=== PATIENT | male | born 1955 | race Hispanic/Latino ===

== ENCOUNTER → 2019-08-07 | Outpatient (CLI) | payer MEDICARE ==
[~2019-08-07] VITALS: Ht 180.3 cm; Wt 125.2 kg
[~2019-08-07] MED LIST: ALLO100T PO; ASPI-1012 PO; CARV25TA PO; CLOP75TA32 PO; DIGO125T87 PO; DILT120C47 PO; FURO40TA5 PO; GLIM2TAB3 PO; RANO500T2 PO; REGADENOSON 0.4 MG/5 ML PF SYG IVP SCH; SIMV40TA59 PO; VALS320T16 PO
== END | disposition home or self-care (01) ==
LOC: SHCH 09:19
PROVIDERS: ATTEND Internal Medicine Cardiovascular Disease
DX: R94.39 Abnormal result of other cardiovascular function study (principal); I25.709 Atherosclerosis of coronary artery bypass graft(s), unspecified, with unspecified angina pectoris
CPT/HCPCS: 78452; 93017; 96374; A9500 ×2; J2785

== ENCOUNTER 2019-08-15 09:58 | Observation (INO) | payer MEDICARE ==
[2019-08-13 09:14] LABS: BASOPHILS % (AUTO) 0.8 % (0.0-5.0); HEMATOCRIT 36.6 % (42-54); LYMPHOCYTES % (AUTO) 13.2 % (21.0-51.0); MEAN CORPUSCULAR HEMOGLOBIN 31.1 pg (27.0-33.0); MEAN CORPUSCULAR HGB CONC 33.6 g/dL (32.0-36.0); MEAN CORPUSCULAR VOLUME 92.5 fL (79-99); MONOCYTES % (AUTO) 9.2 % (3.0-13.0); NEUTROPHILS % (AUTO) 72.8 % (40.0-77.0); PLATELET COUNT (AUTO) 254 K/uL (130-400); RED BLOOD CELL COUNT(AUTO) 3.96 MIL/uL (4.50-6.20); RED CELL DISTRIBUTION WIDTH 13.8 % (11.0-15.5); WHITE BLOOD COUNT (AUTO) 7.1 K/uL (4.8-10.8)
[2019-08-13 09:15] VITALS: BP 126/58
[2019-08-13 09:16] LABS: APPEARANCE,URINE Clear (CLEAR); BILIRUBIN,URINE Negative (NEGATIVE); COLOR,URINE Yellow (YELLOW); GLUCOSE, URINE (UA) Negative (NEGATIVE); KETONES,URINE Negative (NEGATIVE); LEUKOCYTE ESTERASE ,URINE Negative (NEGATIVE); NITRATE,URINE Negative (NEGATIVE); OCCULT BLOOD,URINE Negative (NEGATIVE); PH,URINE 5.5 (5.0-8.0); PROTEIN,URINE Negative (NEGATIVE); UROBILINOGEN,URINE 0.2 mg/dL (0.2-1.0)
[2019-08-13 09:22] LABS: POTASSIUM 3.6 mmol/L (3.5-5.1)
[2019-08-13 09:27] LABS: INR 1.01 (0.85-1.15); PARTIAL THROMBOPLASTIN TIME 27.6 SEC (26.3-35.5); PROTHROMBIN TIME 10.6 SEC (9.6-11.6)
[2019-08-14] MEDS: SODIUM CHLORIDE 0.9% 500ML 500 ML IV SCH (05:00)
--- NOTE | 2019-08-14 10:58 | NUR ---
XRAY ABNORMAL CHEST XRAY REPORTED TO SATINDER CASH, NO FURTHER ORDERS GIVEN
[~2019-08-15] VITALS: Ht 179.1 cm; Wt 122.9 kg
[2019-08-15] VITALS (14 sets, daily range): BP systolic 159–217; BP diastolic 69–117
[2019-08-15] MEDS: SODIUM CHLORIDE 0.9% 500ML 500 ML IV SCH (05:00)
[~2019-08-15 09:58] MED LIST changes: -ALLO100T PO; +APIX5TAB PO; -ASPI-1012 PO; +CYAN500T63 PO; -GLIM2TAB3 PO; +INSU100V12 SQ; +ISOS30TA6 PO; +LOSA100T58 PO; +NITR0.4T50 SL; -RANO500T2 PO; -REGADENOSON 0.4 MG/5 ML PF SYG IVP SCH; +SIMV40TA5 PO; -SIMV40TA59 PO; -VALS320T16 PO
[2019-08-15] MEDS ORDERED: AMOX-429 PO (10:59)
--- NOTE | 2019-08-15 11:44 | NUR ---
PT ON ANTIBIOTICS FOR UPPER RESPIRATORY INFECTION, REPORTED TO ANABELL CASH PT ASYMPTOMATIC, NO NEW ORDERS.
[2019-08-15] MEDS ORDERED: SODIUM CHLORIDE 0.9% 1000ML 1,000 ML IV ONE (11:47)
[2019-08-15] MEDS ORDERED: IOHEXOL 350 MG/ML 100ML INFUS..BTL IV ONE ×3 (14:15→15:03)
[2019-08-15] MEDS ORDERED: LIDOCAINE HCL 1% 20 ML VIAL ONE (14:15)
[2019-08-15] MEDS ORDERED: IOHEXOL-350 50ML VIAL IV ONE (14:15)
[2019-08-15] MEDS ORDERED: HEPARIN SODIUM 1000UNIT/ML 10ML VIAL ONE (14:15)
[2019-08-15] MEDS ORDERED: NITROGLYCERIN 50 MG/D5% WATER 1 BOT ONE (14:50)
[2019-08-15] MEDS ORDERED: LABETALOL 20 MG/4 ML DISP.SYRIN IV ONE ×2 (14:50→16:22)
[2019-08-15] MEDS ORDERED: HYDRALAZINE HCL 20 MG/ML VIAL ONE (15:07)
[2019-08-15] MEDS ORDERED: MORPHINE SULFATE 4 MG/1ML SYG ONE (15:20)
[2019-08-15] MEDS ORDERED: ENALAPRILAT DIHYDRATE 1.25 MG/ML 2ML VIAL IVP ONE (15:22)
[2019-08-15] MEDS ORDERED: FUROSEMIDE 10 MG/ML 2ML VIAL ONE (15:29)
[2019-08-15] MEDS ORDERED: GLUCAGON 1MG KIT 1 MG ML IM PRN (16:00)
[2019-08-15] MEDS ORDERED: DEXTROSE 50%-WATER 50 ML DISP.SYRIN IV PRN (16:00)
[2019-08-15] MEDS ORDERED: ACETAMINOPHEN-CODEINE 300/30MG TAB PO PRN ×2 (16:00)
[2019-08-15] MEDS: INSULIN HUMULIN R 100 UNIT/ML 3ML SQ SCH ×2 (16:30→21:00)
[2019-08-15] MEDS ORDERED: HYDRALAZINE HCL 25 MG TABLET PO SCH (17:43)
[2019-08-15] MEDS ORDERED: DILTIAZEM HCL 180 MG CAP.SR.24H PO SCH (17:45)
[2019-08-15] MEDS: LABETALOL 20 MG/4 ML DISP.SYRIN IV PRN ×2 (17:49→23:20)
[2019-08-15] MEDS ORDERED: HYDROXYZINE HCL 25 MG TABLET PO SCH (19:00)
[2019-08-15] MEDS ORDERED: CLONIDINE HCL 0.2 MG TABLET PO SCH (19:15)
[2019-08-15] MEDS: MORPHINE SULFATE 4 MG/1ML SYG IV PRN (19:22)
[2019-08-15] MEDS: HYDRALAZINE HCL 20 MG/ML VIAL IV PRN (19:22)
--- NOTE | 2019-08-15 20:17 | NUR ---
ADVISED PT OF TRANSFER TO ROOM 220 AND DAUGHTER, NO CONCERNS VOICED. GAVE REPORT TO DEL HATFIELD RN , NO CONCERNS VOICED.
--- NOTE | 2019-08-15 20:27 | NUR ---
ADVISED DEL HATFIELD RN ABOUT PENDING MEDICATIONS.
--- NOTE | 2019-08-15 21:10 | NUR ---
PATIENT ARRIVED ON UNIT R GROIN SOFT, NO HEMATOMA. BILATERAL PEDAL PULSES INTACT W/ DOPPLER. NO CHEST PAIN, NO SOB. NO PAIN. SBP IN 190S. RECOVERY NURSE DID NOT ADMINISTER CLONIDINE OR LABETALOL DUE AT 1900. BROUGHT MEDICATIONS TO NURSE AT 2200.
--- NOTE | 2019-08-15 23:15 | NUR ---
PATIENT AMBULATED R GROIN REMAINS SOFT. NO BLEEDING, NO HEMATOMA. PEDAL PULSES INTACT WITH DOPPLER. ONCE SITTING PATIENT GIVEN CLONIDINE AND LABETALOL. SBP DOWN TO 150S AFTER 20 MIN.
[2019-08-16 03:26] VITALS: BP 132/59
[2019-08-16 03:53] LABS: BASOPHILS % (AUTO) 0.6 % (0.0-5.0); EOSINOPHILS % (AUTO) 1.1 % (0.0-8.0); HEMATOCRIT 34.8 % (42-54); LYMPHOCYTES % (AUTO) 9.3 % (21.0-51.0); MEAN CORPUSCULAR HEMOGLOBIN 31.2 pg (27.0-33.0); MEAN CORPUSCULAR HGB CONC 34.2 g/dL (32.0-36.0); MEAN CORPUSCULAR VOLUME 91.4 fL (79-99); MONOCYTES % (AUTO) 7.9 % (3.0-13.0); NEUTROPHILS % (AUTO) 81.1 % (40.0-77.0); PLATELET COUNT (AUTO) 258 K/uL (130-400); RED CELL DISTRIBUTION WIDTH 13.7 % (11.0-15.5); WHITE BLOOD COUNT (AUTO) 8.5 K/uL (4.8-10.8)
[2019-08-16 04:06] LABS: ALBUMIN 2.8 g/dL (3.5-5.0); BILIRUBIN,TOTAL 0.5 mg/dL (0.2-1.0); MAGNESIUM 1.4 mg/dL (1.80-2.40); POTASSIUM 3.6 mmol/L (3.5-5.1)
[2019-08-16] MEDS: SODIUM CHLORIDE 0.9% 500ML 500 ML IV SCH (05:00)
[2019-08-16] MEDS ORDERED: POTASSIUM CHLORIDE 20MEQ/100ML 100 ML IV PRN (05:30)
[2019-08-16] MEDS ORDERED: POTASSIUM CHLORIDE 10% ELIXIR 20 MEQ/15 ML UDCUP PO PRN (05:30)
[2019-08-16] MEDS ORDERED: MAGNESIUM 2GM PREMIX 50ML 50 ML IV PRN (05:30)
[2019-08-16] MEDS ORDERED: POTASSIUM CHLORIDE 20 MEQ ERTAB PO PRN (05:30)
[2019-08-16] MEDS ORDERED: LIDOCAINE HCL-MPF 1% 2ML VIAL IV PRN (05:30)
[2019-08-16] MEDS: INSULIN HUMULIN R 100 UNIT/ML 3ML SQ SCH ×2 (06:27→11:30)
[2019-08-16] MEDS: HYDRALAZINE HCL 20 MG/ML VIAL IV PRN (07:06)
[2019-08-16] MEDS: MORPHINE SULFATE 4 MG/1ML SYG IV PRN (07:06)
[2019-08-16] MEDS ORDERED: NITROGLYCERIN 0.4 MG SL TAB SL PRN (07:15)
[2019-08-16 07:51] VITALS: BP 145/78
--- NOTE | 2019-08-16 08:00 | NUR ---
ASSESSMENT PT IS AAOX4 DENIES CP DENIES SOB DENIES NV NO COMPLAINTS RESTING IN BED. RIGHT GROIN IS CLEAN DRY AND INTACT DRESSING IN PLACE. CALL LIGHT WITHIN REACH.
[2019-08-16] MEDS ORDERED: DIGOXIN 125 MCG TABLET PO SCH (09:00)
[2019-08-16] MEDS ORDERED: DILTIAZEM HCL 120 MG CAP.SR.24H PO SCH (09:00)
[2019-08-16] MEDS ORDERED: CLOPIDOGREL BISULFATE 75 MG TAB PO SCH (09:00)
[2019-08-16] MEDS ORDERED: CARVEDILOL 25 MG TABLET PO SCH (09:00)
[2019-08-16] MEDS ORDERED: FUROSEMIDE 40 MG TABLET PO SCH (09:00)
[2019-08-16] MEDS ORDERED: SIMVASTATIN 20 MG TABLET PO SCH (09:00)
[2019-08-16] MEDS ORDERED: LOSARTAN 100 MG TABLET PO SCH (09:00)
[2019-08-16] MEDS ORDERED: ISOSORBIDE MONO 30MG TAB SR PO SCH (09:00)
[2019-08-16] MEDS ORDERED: AMLODIPINE BESYLATE 2.5 MG TAB PO SCH (09:00)
--- NOTE | 2019-08-16 10:00 | NUR ---
MD ROUNDS DR COOLEY AND DR WU ROUNDED, SAW PATIENT, ORDERS RECEIVED FOR DC HOME.
[2019-08-16 11:44] VITALS: BP 118/50
--- NOTE | 2019-08-16 12:20 | NUR ---
DISCHARGE PATIENT VERBALIZES DC INSTRUCTION UNDERSTANDING, AGREES TO TAKE MEDICATIONS ORDERED AGREES TO FOLLOW UP WITH DR WU ORDERED. ALL QUESTIONS ANSWERED, PIV REMOVED CATH TIP INTACT, TELE PACK REMOVED. ALL BELONGINGS TAKEN WITH PATIENT, DOWN TO VEHICLE AMBULATING ACCOMPANIED BY NURSE AIDE.
[2019-08-16] MEDS ORDERED: HYDRALAZINE HCL 10 MG TABLET PO SCH (14:00)
[2019-08-16] MEDS ORDERED: CYANOCOBALAMIN (VITAMIN B-12) 1,000 MCG TABLET PO SCH (21:00)
[2019-08-16] MEDS ORDERED: INSULIN GLARGINE 100 UNITS/ML 10 ML VIAL SQ SCH (21:00)
== END 2019-08-16 12:36 | disposition home or self-care (01) ==
LOC: DAH 09:58 → 2DH 09:59 → DAH 09:59 → INTOOBSV 09:59
PROVIDERS: ADMIT Family Medicine; ATTEND Family Medicine
DX: I25.119 Atherosclerotic heart disease of native coronary artery with unspecified angina pectoris (principal); I11.0 Hypertensive heart disease with heart failure; I50.42 Chronic combined systolic (congestive) and diastolic (congestive) heart failure; E11.22 Type 2 diabetes mellitus with diabetic chronic kidney disease; I25.5 Ischemic cardiomyopathy; I48.0 Paroxysmal atrial fibrillation; E78.00 Pure hypercholesterolemia, unspecified; E66.01 Morbid (severe) obesity due to excess calories; Z86.73 Personal history of transient ischemic attack (TIA), and cerebral infarction without residual deficits; Z95.1 Presence of aortocoronary bypass graft; Z95.810 Presence of automatic (implantable) cardiac defibrillator; Z80.7 Family history of other malignant neoplasms of lymphoid, hematopoietic and related tissues; Z82.3 Family history of stroke; Z82.49 Family history of ischemic heart disease and other diseases of the circulatory system; Z83.3 Family history of diabetes mellitus; Z90.49 Acquired absence of other specified parts of digestive tract; Z79.899 Other long term (current) drug therapy
CPT/HCPCS: 36415 ×2; 71045; 80048; 80053; 81003; 82948 ×5; 83735; 85025 ×2; 85610; 85730; 93005; 93459; 96365; 96366; 96372; 96375; 96376; A4215; A4216; A4221; A4222; A4223 ×3; A4606; C1769; C1894; G0378 ×14; J0360 ×2; J1644 ×2; J1815; J1940; J2270 ×2; J3475; J3490 ×2; J7030; J7040; Q9965 ×2; Q9967 ×3

== ENCOUNTER → 2021-07-03 | Outpatient (CLI) | payer OTHER ==
[~2021-07-03] MED LIST changes: -CYAN500T63 PO; +CYAN500T9 PO; +DIGO125T71 PO; -DIGO125T87 PO; -DILT120C47 PO; +IOHEXOL 350 MG/ML 100ML INFUS..BTL IV ONE; +IOHEXOL-350 75 ML VIAL IV ONE; -ISOS30TA6 PO; +ISOS30TA92 PO; +SIMV-46 PO; -SIMV40TA5 PO
== END | disposition home or self-care (01) ==
LOC: RAH 09:57
PROVIDERS: ATTEND Internal Medicine Cardiovascular Disease
DX: I70.0 Atherosclerosis of aorta (principal); I65.23 Occlusion and stenosis of bilateral carotid arteries
CPT/HCPCS: 75635; Q9967 ×2

== ENCOUNTER → 2022-10-14 | Outpatient (CLI) | payer OTHER ==
[~2022-10-14] MED LIST changes: -IOHEXOL 350 MG/ML 100ML INFUS..BTL IV ONE; -IOHEXOL-350 75 ML VIAL IV ONE
== END | disposition home or self-care (01) ==
LOC: SHCH 14:10
PROVIDERS: ATTEND Internal Medicine Cardiovascular Disease
DX: I65.23 Occlusion and stenosis of bilateral carotid arteries (principal); I07.1 Rheumatic tricuspid insufficiency; I25.5 Ischemic cardiomyopathy
CPT/HCPCS: 93306; 93880

== ENCOUNTER → 2023-02-24 | Outpatient (CLI) | payer OTHER | END | disposition home or self-care (01) | LOC: LAB 14:04 | PROVIDERS: ATTEND Physician Assistant | DX: I25.10 Atherosclerotic heart disease of native coronary artery without angina pectoris (principal) | CPT/HCPCS: 36415; 80162 ==

== ENCOUNTER → 2023-04-07 | Outpatient (CLI) | payer OTHER ==
[~2023-04-07] MED LIST changes: +ALLO100T PO; +ASPI-1026 PO; +CYAN250014 PO; +DIGO0.12 PO; +DILT120C47 PO; +GLIM2TAB30 PO; -LOSA100T58 PO; +LOSA100T59 PO; +MELA3CAP PO; +RANO10003 PO; +RIVA20TA PO; +VALS320T16 PO
== END | disposition home or self-care (01) ==
LOC: SHCH 13:04
PROVIDERS: ATTEND Internal Medicine Cardiovascular Disease
DX: I87.2 Venous insufficiency (chronic) (peripheral) (principal)
CPT/HCPCS: 93970

== ENCOUNTER → 2023-07-07 | Outpatient (CLI) | payer OTHER ==
[2023-07-07 11:58] LABS: BASOPHILS # (AUTO) 0.05 K/uL (0.00-0.20); BASOPHILS % (AUTO) 0.8 % (0.0-5.0); EOSINOPHILS # (AUTO) 0.15 K/uL (0.00-0.70); EOSINOPHILS % (AUTO) 2.4 % (0.0-8.0); HEMATOCRIT 44.1 % (42-54); IMMATURE GRANULOCYTE ABSOLUTE 0.03 K/uL (0-1); LYMPHOCYTES # (AUTO) 1.1 K/uL (1.0-4.8); LYMPHOCYTES % (AUTO) 18.1 % (21.0-51.0); MEAN CORPUSCULAR HEMOGLOBIN 31.5 pg (27.0-33.0); MEAN CORPUSCULAR HGB CONC 32.4 g/dL (32.0-36.0); MEAN CORPUSCULAR VOLUME 97.1 fL (79-99); MONOCYTES # (AUTO) 0.7 K/uL (0.1-1.0); MONOCYTES % (AUTO) 11.4 % (3.0-13.0); NEUTROPHILS # (AUTO) 4.2 K/uL (1.8-7.7); NEUTROPHILS % (AUTO) 66.8 % (40.0-77.0); PLATELET COUNT (AUTO) 211 K/uL (130-400); RED BLOOD CELL COUNT(AUTO) 4.54 MIL/uL (4.50-6.20); RED CELL DISTRIBUTION WIDTH 13.2 % (11.0-15.5); WHITE BLOOD COUNT (AUTO) 6.3 K/uL (4.8-10.8)
[2023-07-07 12:05] LABS: INR 0.94 (0.85-1.15)
[2023-07-07 12:07] LABS: PARTIAL THROMBOPLASTIN TIME 32.5 SEC (26.3-35.5)
[2023-07-07 12:09] LABS: POTASSIUM 3.8 mmol/L (3.5-5.1)
== END | disposition home or self-care (01) ==
LOC: LAB 10:58
PROVIDERS: ATTEND Internal Medicine Cardiovascular Disease
DX: I87.2 Venous insufficiency (chronic) (peripheral) (principal); I10 Essential (primary) hypertension; I87.1 Compression of vein; I73.9 Peripheral vascular disease, unspecified; R06.02 Shortness of breath; M79.89 Other specified soft tissue disorders; I25.810 Atherosclerosis of coronary artery bypass graft(s) without angina pectoris; Z95.1 Presence of aortocoronary bypass graft; Z79.02 Long term (current) use of antithrombotics/antiplatelets; Z79.899 Other long term (current) drug therapy
CPT/HCPCS: 36415; 80048; 85025; 85610; 85730

== ENCOUNTER → 2023-08-02 | Outpatient (CLI) | payer OTHER | END | disposition home or self-care (01) | LOC: SHCH 10:33 | PROVIDERS: ATTEND Internal Medicine Cardiovascular Disease | DX: I70.293 Other atherosclerosis of native arteries of extremities, bilateral legs (principal) | CPT/HCPCS: 93925 ==

== ENCOUNTER → 2023-08-11 | Outpatient (CLI) | payer OTHER ==
[2023-08-11 16:26] LABS: BASOPHILS # (AUTO) 0.04 K/uL (0.00-0.20); BASOPHILS % (AUTO) 0.6 % (0.0-5.0); EOSINOPHILS # (AUTO) 0.15 K/uL (0.00-0.70); EOSINOPHILS % (AUTO) 2.3 % (0.0-8.0); HEMATOCRIT 43.9 % (42-54); IMMATURE GRANULOCYTE ABSOLUTE 0.01 K/uL (0-1); LYMPHOCYTES # (AUTO) 1.1 K/uL (1.0-4.8); LYMPHOCYTES % (AUTO) 16.4 % (21.0-51.0); MEAN CORPUSCULAR HEMOGLOBIN 31.7 pg (27.0-33.0); MEAN CORPUSCULAR HGB CONC 31.9 g/dL (32.0-36.0); MEAN CORPUSCULAR VOLUME 99.3 fL (79-99); MONOCYTES # (AUTO) 0.7 K/uL (0.1-1.0); MONOCYTES % (AUTO) 11.1 % (3.0-13.0); NEUTROPHILS # (AUTO) 4.5 K/uL (1.8-7.7); NEUTROPHILS % (AUTO) 69.4 % (40.0-77.0); PLATELET COUNT (AUTO) 226 K/uL (130-400); RED BLOOD CELL COUNT(AUTO) 4.42 MIL/uL (4.50-6.20); RED CELL DISTRIBUTION WIDTH 13.3 % (11.0-15.5); WHITE BLOOD COUNT (AUTO) 6.5 K/uL (4.8-10.8)
[2023-08-11 16:28] LABS: CREATININE 1.1 mg/dL (0.5-1.5); POTASSIUM 4.4 mmol/L (3.5-5.1)
[2023-08-11 16:34] LABS: INR 0.95 (0.85-1.15); PROTHROMBIN TIME 11.1 SEC (9.6-11.6)
[2023-08-11 16:35] LABS: PARTIAL THROMBOPLASTIN TIME 32.9 SEC (26.3-35.5)
== END | disposition home or self-care (01) ==
LOC: LAB 13:56
PROVIDERS: ATTEND Internal Medicine Cardiovascular Disease
DX: I11.0 Hypertensive heart disease with heart failure (principal); I50.20 Unspecified systolic (congestive) heart failure; M79.605 Pain in left leg; I73.9 Peripheral vascular disease, unspecified; I48.0 Paroxysmal atrial fibrillation; G25.81 Restless legs syndrome; Z95.1 Presence of aortocoronary bypass graft; I25.10 Atherosclerotic heart disease of native coronary artery without angina pectoris; E78.5 Hyperlipidemia, unspecified; E11.51 Type 2 diabetes mellitus with diabetic peripheral angiopathy without gangrene; Z79.899 Other long term (current) drug therapy; Z79.01 Long term (current) use of anticoagulants; Z79.84 Long term (current) use of oral hypoglycemic drugs
CPT/HCPCS: 36415; 80048; 85025; 85610; 85730

== ENCOUNTER 2023-12-20 11:47 | Observation (INO) | payer OTHER ==
[~2023-12-20] VITALS: Ht 175.3 cm; Wt 122.5 kg
[2023-12-20 12:36] LABS: BASOPHILS # (AUTO) 0.06 K/uL (0.00-0.20); BASOPHILS % (AUTO) 0.8 % (0.0-5.0); EOSINOPHILS % (AUTO) 2.8 % (0.0-8.0); HEMATOCRIT 45.5 % (42-54); IMMATURE GRANULOCYTE ABSOLUTE 0.02 K/uL (0-1); LYMPHOCYTES # (AUTO) 0.9 K/uL (1.0-4.8); LYMPHOCYTES % (AUTO) 11.9 % (21.0-51.0); MEAN CORPUSCULAR HEMOGLOBIN 32.5 pg (27.0-33.0); MEAN CORPUSCULAR HGB CONC 32.5 g/dL (32.0-36.0); MONOCYTES # (AUTO) 0.9 K/uL (0.1-1.0); MONOCYTES % (AUTO) 12.4 % (3.0-13.0); NEUTROPHILS # (AUTO) 5.1 K/uL (1.8-7.7); NEUTROPHILS % (AUTO) 71.8 % (40.0-77.0); PLATELET COUNT (AUTO) 218 K/uL (130-400); RED BLOOD CELL COUNT(AUTO) 4.55 MIL/uL (4.50-6.20); RED CELL DISTRIBUTION WIDTH 14.2 % (11.0-15.5); WHITE BLOOD COUNT (AUTO) 7.2 K/uL (4.8-10.8)
[2023-12-20 12:52] LABS: CREATININE 0.9 mg/dL (0.5-1.5); POTASSIUM 4.6 mmol/L (3.5-5.1)
[2023-12-20 12:57] LABS: ALBUMIN 3.1 g/dL (3.5-5.0); BILIRUBIN,TOTAL 0.9 mg/dL (0.2-1.0); TOTAL PROTEIN, SERUM 7.4 g/dL (6.0-8.3)
[2023-12-20 12:58] LABS: B-TYPE NATRIURETIC PEPTIDE 453 pg/mL (0-100)
[2023-12-20] MEDS ORDERED: RANO500T2 PO (15:35)
[2023-12-20] MEDS ORDERED: EMPA10TA PO (15:35)
[2023-12-20] MEDS ORDERED: CARV25TA PO (15:35)
[2023-12-20] MEDS ORDERED: DIGO0.12 PO (15:35)
[2023-12-20] MEDS ORDERED: CLOP75TA32 PO (15:35)
[2023-12-20] MEDS ORDERED: APIX5TAB PO (15:35)
[2023-12-20] MEDS ORDERED: SACU1TAB4 PO (15:35)
[2023-12-20] MEDS ORDERED: SIMV40TA59 PO (15:35)
[2023-12-20] MEDS ORDERED: CEFTRIAXONE 1G VIAL IVPB SCH (16:30)
[2023-12-20] MEDS ORDERED: FUROSEMIDE 20MG VIAL IV ONE (16:30)
[2023-12-20 16:58] LABS: SARS-CoV-2, RNA, NAAT NEGATIVE SARS CoV-2 (NEGATIVE)
[2023-12-20 17:08] LABS: INFLUENZA TYPE A Positive For Type A (NEGATIVE); INFLUENZA TYPE B Positive For Type B (NEGATIVE)
[2023-12-20 18:47] VITALS: PULSE 82; RESP 16
[2023-12-20] MEDS: IPRATROPIUM/ALBUTEROL SULFATE 3 ML SOLUTION IH SCH ×2 (18:47→22:50)
[2023-12-20] MEDS: SOLU-MEDROL 40MG VIAL IVP SCH (20:08)
[2023-12-20 22:50] VITALS: PULSE 79; RESP 14
[2023-12-20] MEDS ORDERED: CLONIDINE HCL 0.1 MG TABLET PO PRN (23:00)
[2023-12-21 06:20] VITALS: PULSE 75; RESP 18
[2023-12-21] MEDS: IPRATROPIUM/ALBUTEROL SULFATE 3 ML SOLUTION IH SCH (06:20)
[2023-12-21 07:24] LABS: BASOPHILS # (AUTO) 0.01 K/uL (0.00-0.20); BASOPHILS % (AUTO) 0.1 % (0.0-5.0); HEMATOCRIT 46.5 % (42-54); IMMATURE GRANULOCYTE ABSOLUTE 0.03 K/uL (0-1); LYMPHOCYTES # (AUTO) 0.4 K/uL (1.0-4.8); LYMPHOCYTES % (AUTO) 5.1 % (21.0-51.0); MEAN CORPUSCULAR HEMOGLOBIN 31.5 pg (27.0-33.0); MEAN CORPUSCULAR HGB CONC 31.8 g/dL (32.0-36.0); MEAN CORPUSCULAR VOLUME 98.9 fL (79-99); MONOCYTES # (AUTO) 0.1 K/uL (0.1-1.0); MONOCYTES % (AUTO) 1.1 % (3.0-13.0); NEUTROPHILS # (AUTO) 6.8 K/uL (1.8-7.7); NEUTROPHILS % (AUTO) 93.3 % (40.0-77.0); PLATELET COUNT (AUTO) 215 K/uL (130-400); RED CELL DISTRIBUTION WIDTH 13.9 % (11.0-15.5); WHITE BLOOD COUNT (AUTO) 7.3 K/uL (4.8-10.8)
[2023-12-21 07:43] LABS: ALBUMIN 3.2 g/dL (3.5-5.0); BILIRUBIN,TOTAL 0.8 mg/dL (0.2-1.0); CREATININE 1.1 mg/dL (0.5-1.5); POTASSIUM 4.5 mmol/L (3.5-5.1); TOTAL PROTEIN, SERUM 7.8 g/dL (6.0-8.3)
[2023-12-21] MEDS: SOLU-MEDROL 40MG VIAL IVP SCH (08:37)
[2023-12-21 10:36] VITALS: BP 168/71; PULSE 74; RESP 18; O2SAT 96
== END 2023-12-21 10:38 | disposition home or self-care (01) ==
LOC: EDH 11:47 → EDHIP 16:30 → INTOOBSV 16:30 → EDHIP 12-21 10:38
PROVIDERS: ADMIT Internal Medicine; ATTEND Internal Medicine
DX: J10.1 Influenza due to other identified influenza virus with other respiratory manifestations (principal); Z20.822 Contact with and (suspected) exposure to COVID-19; I11.0 Hypertensive heart disease with heart failure; I50.9 Heart failure, unspecified; E11.9 Type 2 diabetes mellitus without complications; E78.5 Hyperlipidemia, unspecified; I48.91 Unspecified atrial fibrillation; I25.10 Atherosclerotic heart disease of native coronary artery without angina pectoris; I45.10 Unspecified right bundle-branch block; R09.89 Other specified symptoms and signs involving the circulatory and respiratory systems; Z79.01 Long term (current) use of anticoagulants; Z95.1 Presence of aortocoronary bypass graft; Z95.5 Presence of coronary angioplasty implant and graft; Z95.810 Presence of automatic (implantable) cardiac defibrillator; Z79.899 Other long term (current) drug therapy
CPT/HCPCS: 94640 ×3; 94664; 96365; 96375; 84484 ×3; 80053 ×2; 83880; 85025 ×2; 87804 ×2; 36415 ×2; 87635; 71045; 99291; 93005; 96376; 82550; J0696; J2920 ×2; J1940; G0378 ×3